=== PATIENT | male | born 1955 | race Hispanic/Latino ===

== ENCOUNTER 2022-12-30 17:24 | Emergency (ER) | payer OTHER ==
[~2022-12-30] VITALS: Ht 170.2 cm; Wt 70.3 kg
[2022-12-30 22:04] VITALS: BP 169/83; PULSE 71; RESP 16; O2SAT 96
[2022-12-30] MEDS ORDERED: LIDOP TP (22:20)
== END 2022-12-30 23:09 | disposition home or self-care (01) ==
LOC: EDH 17:24
DX: R51.9 Headache, unspecified (principal); Z04.1 Encounter for examination and observation following transport accident
CPT/HCPCS: 99282